=== PATIENT | female | born 1985 ===

== ENCOUNTER 2021-06-29 06:00 | Outpatient (RCR) | payer MEDICAID, SELFPAY | END 2021-07-24 23:59 | disposition home or self-care (01) | LOC: MPT 06:00 | PROVIDERS: Referring Provider Family Medicine; Visit Provider Family Medicine | DX: M54.32 Sciatica, left side (principal) | CPT/HCPCS: 97110; 97140; 97162; G0283 ==

== ENCOUNTER 2021-07-25 06:00 | Outpatient (RCR) | payer MEDICAID, SELFPAY | END 2021-08-24 23:59 | disposition home or self-care (01) | LOC: MPT 06:00 | PROVIDERS: Referring Provider Family Medicine; Visit Provider Family Medicine | DX: M54.32 Sciatica, left side (principal) | CPT/HCPCS: 97110; 97140; G0283 ==